=== PATIENT | male | born 2000 | race Hispanic/Latino ===

== ENCOUNTER 2022-04-11 15:06 | Emergency (ER) | payer MEDICAID, OTHER ==
[~2022-04-11] VITALS: Ht 180.3 cm; Wt 134.3 kg
[2022-04-11] MEDS ORDERED: PRED20TA3 PO (17:51)
[2022-04-11] MEDS ORDERED: ALBU90AE2 IH (17:51)
[2022-04-11] MEDS ORDERED: HYDR-3421 PO (17:53)
[2022-04-11 18:24] VITALS: BP 135/75
== END 2022-04-11 18:28 | disposition home or self-care (01) ==
LOC: EDH 15:06
DX: U09.9 Post COVID-19 condition, unspecified (principal); R53.82 Chronic fatigue, unspecified; R06.00 Dyspnea, unspecified